=== PATIENT | male | born 1970 | race Caucasian/White ===

== ENCOUNTER 2016-08-02 02:19 | Emergency (ER) | payer MEDICAID ==
--- NOTE | 2016-08-02 03:18 | ER PHYSICIAN DOCUMENTATION ---
Physician Documentation [facility] Name:Jose Luis Lara Age:45 yrs Sex:Male :1970 Arrival Date:08/02/2016 Time:02:19 Bed1 Private MD:Physician, No ED Gómez Thomas Disposition: 08/02/16 03:07 Discharged to Home/Self Care. Impression: Rotator Cuff Injury. - Condition is Good. - Discharge Instructions: ROTATOR CUFF TEAR, SHOULDER IMMOBILIZER. - Medical Reconciliation form form. - Follow up: Dustin Casarez DO, Ronald Peters MD; When: 1 week; Reason: Continuance of care. - Problem is new. - Symptoms are unchanged. HPI: 08/02 03:08 This 45 yrs old Male presents to ER via Walk In with complaints of Shoulder sc Pain - LEFT. 03:08 The patient or guardian complains of an injury. left shoulder. Context: The problem was sc sustained at home, resulted from playing sports, punching heavy bag, felt subluxation. Onset: The symptom(s)/episode began/occurred just prior to arrival. Associated signs and symptoms: The patient has no apparent associated signs or symptoms. Historical: - Allergies: PENICILLINS; ANTI BACTERIAL SOAP; - Home Meds: 1. None - PMHx: None; - PSHx: HERNIA REPAIR; - Tetanus: unknown. - Ebola Screening: : Patient negative for fever greater than or equal to 101.5 degrees Fahrenheit, and additional compatible Ebola Virus Disease symptoms. - Immunization history: Flu Vaccine None. - Social history: Smoking status: Patient states was never smoker of tobacco. ROS: 03:09 Constitutional: Negative for fever, chills, and weight loss. sc Eyes: Negative for injury, pain, redness, and discharge. Neck: Negative for injury, pain, and swelling. Back: Negative for injury and pain. Skin: Negative for injury, rash, and discoloration. 03:09 Neuro: Negative for headache, weakness, numbness, tingling, and seizure. sc 03:09 MS/extremity: Positive for injury or acute deformity, pain, Negative for paresthesias, tingling. Exam: Constitutional: This is a well developed, well nourished patient who is awake, alert, and in no acute distress. Head/Face: Normocephalic, atraumatic. Eyes: Pupils equal round and reactive to light, extra-ocular motions intact. Lids and lashes normal. Conjunctiva and sclera are non-icteric and not injected. Cornea within normal limits. Periorbital areas with no swelling, redness, or edema. Neck: Trachea midline, no thyromegaly or masses palpated, and no cervical lymphadenopathy. Supple, full range of motion without nuchal rigidity, or vertebral point tenderness. No meningismus. Skin: Warm, dry with normal turgor. Normal color with no rashes, no lesions, and no evidence of cellulitis. 03:09 Neuro: Awake and alert, GCS 15, oriented to person, place, time, and situation. sc Cranial nerves II-XII grossly intact. Motor strength 5/5 in all extremities. Sensory grossly intact. Cerebellar exam normal. Normal gait. 03:09 Musculoskeletal/extremity: ROM: limited active range of motion due to pain, in the left shoulder, limited passive range of motion due to pain, Circulation is intact in all extremities. Sensation intact. Vital Signs: 02:20 BP 143 / 94; Pulse 61; Resp 14; Temp 97.7; Pulse Ox 93% on R/A; Weight 81.65 kg; Height em1 5 ft. 10 in. (177.80 cm); Pain 5/10; 02:20 Body Mass Index 25.83 (81.65 kg, 177.80 cm) em1 MDM: 02:49 Patient medically screened. hi 03:10 Differential diagnosis: Anterior dislocation with fracture, Anterior dislocation sc without fracture, glenoid fracture. Data reviewed: vital signs, nurses notes, radiologic studies, plain films, and as a result, I will discharge patient. Counseling: I had a detailed discussion with the patient and/or guardian regarding: the historical points, exam findings, and any diagnostic results supporting the discharge/admit diagnosis, radiology results, the need for outpatient follow up, to return to the emergency department if symptoms worsen or persist or if there are any questions or concerns that arise at home. 08/02 03:05 Order name: ORTHO: Ice Pack; Complete Time: 03:06 sc 08/02 03:05 Order name: ORTHO: Shoulder Immobilizer; Complete Time: 03:06 sc Dispensed Medications: 03:17 Drug: HYDROcodone-acetaminophen (5mg/325 mg) 1-2 tabs 1 tabs; Route: PO; rh 03:17 Follow up: Response: Pharmacy closed - take home med pack rh Signatures: Gómez Ocampo MD MD sc Hofsess, Rachel
--- NOTE | 2016-08-02 03:18 | ER NURSING DOCUMENTATION ---
Nurse's Notes [facility] Name:Jose Luis Lara Age:45 yrs Sex:Male :1970 Arrival Date:08/02/2016 Time:02:19 Bed1 Private MD:Vita Bo Diagnosis:Rotator Cuff Injury Presentation: 08/02 02:20 Presenting complaint: Patient states: PT punched his punching bag with his arm fully rh extended, felt a pop in the left shoulder. PT has full ROM, however increased pain since the incident at 2100. Transition of care: Camp. 02:20 Acuity: KARLA 4 rh 02:20 Method Of Arrival: Walk In Triage Assessment: 02:22 General: Appears in no apparent distress, Behavior is cooperative. Pain: Complains of rh pain in anterior aspect of left shoulder. Musculoskeletal: Circulation, motion, and sensation intact Range of motion intact in all extremities. Historical: - Allergies: PENICILLINS; ANTI BACTERIAL SOAP; - Home Meds: 1. None - PMHx: None; - PSHx: HERNIA REPAIR; - Tetanus: unknown. - Ebola Screening: : Patient negative for fever greater than or equal to 101.5 degrees Fahrenheit, and additional compatible Ebola Virus Disease symptoms. - Immunization history: Flu Vaccine None. - Social history: Smoking status: Patient states was never smoker of tobacco. Screenin:22 Infectious Disease Risk None. Abuse screen: Denies threats or abuse. Denies injuries rh from another. Nutritional screening: No deficits noted. Assessment: 02:22 See Triage Assessment done by same RN. rh Vital Signs: 02:20 BP 143 / 94; Pulse 61; Resp 14; Temp 97.7; Pulse Ox 93% on R/A; Weight 81.65 kg; Height em1 5 ft. 10 in. (177.80 cm); Pain 5/10; 02:20 Body Mass Index 25.83 (81.65 kg, 177.80 cm) em1 ED Course: 02:20 Patient arrived in ED. em2 02:20 Physician, Vita is Private Physician. em2 02:20 Manda Hammond is Primary Nurse. rh 02:21 Triage completed. rh 02:22 Valuables Remains with patient Patient has correct armband on for positive rh identification. Call light in reach. 02:26 Gómez Ocampo MD is Attending Physician. sc 02:27 Notified ED Physician of patient's arrival and chief complaint. Dr. Ocampo notified. rh 02:54 Port Xray Completed. tt 03:06 Dustin Casarez DO, Ronald Peters MD is Referral Physician. sc 03:10 Shoulder immobilizer applied on left shoulder. rh Administered Medications: 03:17 Drug: HYDROcodone-acetaminophen (5mg/325 mg) 1-2 tabs 1 tabs; Route: PO; rh 03:17 Follow up: Response: Pharmacy closed - take home med pack rh Outcome: 03:07 Discharge ordered by MD. sc 03:17 Patient left the ED. rh 03:17 Discharged to home ambulatory. 03:17 Condition: stable 03:17 Discharge Assessment: Patient awake, alert and oriented x 3. No cognitive and/or functional deficits noted. Patient verbalized understanding of disposition instructions. 03:17 Instructed on discharge instructions, follow up and referral plans. Signatures: Gómez Ocampo MD MD sd Kusum Camejo tt [employer], [employer] em1 [place], [employer] em2 Manda Hammond
[2016-08-02] MEDS ORDERED: HYDROcodone/APAP PREPAC 5/325 1 TAB TABLET PO ONE (03:20)
--- NOTE | 2016-08-02 08:05 | RADIOLOGY REPORT ---
Three views of the left shoulder demonstrate no displaced fracture or dislocation. The visualized joints appear unremarkable. IMPRESSION: No displaced injury is identified. If clinically indicated, further evaluation and/or follow-up may be of benefit. JUSTIN
== END 2016-08-02 03:18 | disposition home or self-care (01) ==
LOC: ER 02:19
DX: S49.82XA Other specified injuries of left shoulder and upper arm, initial encounter (principal); W21.89XA Striking against or struck by other sports equipment, initial encounter; Y93.71 Activity, boxing
CPT/HCPCS: 99283